=== PATIENT | male | born 1960 | race Asian ===

== ENCOUNTER 2018-08-07 16:37 | Inpatient (IN) | payer OTHER ==
[2018-08-07 17:12] LABS: ADD MAN DIFF? NO
[2018-08-07] MEDS: DILTIAZEM 25 MG INJ IV ×2 (17:12)
[2018-08-07] MEDS: ASPIRIN 81 MG TAB PO (17:12)
[2018-08-07 17:17] LABS: BASOPHIL # 0.1 10^3/ul (0.0-0.1); BASOPHILS % 0.7 % (0.0-2.0); EOSINOPHILS # 0.2 10^3/ul (0.0-0.5); EOSINOPHILS % 3.2 % (0.0-7.0); HEMATOCRIT 43.3 % (42.0-52.0); HEMOGLOBIN 14.1 g/dl (14.0-18.0); LYMPHOCYTES # 1.6 10^3/ul (0.8-2.9); LYMPHOCYTES % 21.3 % (15.0-51.0); MEAN CORPUSCULAR HEMOGLOBIN 30.4 pg (29.0-33.0); MEAN CORPUSCULAR HGB CONC 32.6 g/dl (32.0-37.0); MEAN CORPUSCULAR VOLUME 93.3 fl (82.0-101.0); MEAN PLATELET VOLUME 10.2 fl (7.4-10.4); MONOCYTE # 0.8 10^3/ul (0.3-0.9); MONOCYTES % 9.9 % (0.0-11.0); NEUTROPHIL # 4.9 10^3/ul (1.6-7.5); NEUTROPHILS % 64.4 % (39.0-77.0); PLATELET COUNT 232 10^3/UL (140-415); RED BLOOD COUNT 4.64 10^6/ul (4.70-6.10); RED CELL DISTRIBUTION WIDTH 13.5 % (11.5-14.5)
[2018-08-07 17:17] LABS: WHITE BLOOD COUNT 7.6 10^3/ul (4.8-10.8)
[2018-08-07] MEDS: MAGNESIUM SULFATE 2 GM/50 ML 50 ML IVPB (17:19)
[2018-08-07 17:34] LABS: ANION GAP 5 (5-13); BLOOD UREA NITROGEN 17 mg/dl (7-20); CALCIUM 8.9 mg/dl (8.4-10.2); CARBON DIOXIDE 28 mmol/L (21-31); CHLORIDE 104 mmol/L (97-110); CREATININE 0.77 mg/dl (0.61-1.24); Estimated GFR > 60 mL/min (>60); GLUCOSE 180 mg/dl (70-220); POTASSIUM 4.4 mmol/L (3.5-5.1); SODIUM 137 mmol/L (135-144)
[2018-08-07 17:36] LABS: INR 1.01; PROTIME 13.4 Sec (11.9-14.9)
[2018-08-07 17:37] LABS: PARTIAL THROMBOPLASTIN TIME 32.6 Sec (23.0-35.0)
[2018-08-07 17:46] LABS: B-TYPE NATRIURETIC PEPTIDE 2120 PG/ML (0-125); TROPONIN-I 0.013 ng/ml (0.000-0.120)
[2018-08-07] MEDS: DILTIAZEM-D5W 125MG/125ML DRIP 125 ML IV (18:30)
[2018-08-07] MEDS ORDERED: ONDANSETRON 4 MG INJ IV ×2 (18:30→19:00)
[2018-08-07] MEDS ORDERED: ACETAMINOPHEN 325 MG TAB PO (18:30)
[2018-08-07] MEDS ORDERED: GLUCOSE GEL 15 GRAM TUBE BUCCAL (19:30)
[2018-08-07] MEDS ORDERED: DEXTROSE 50% 50 ML SYRINGE IV ×2 (19:30)
[2018-08-07] MEDS ORDERED: GLUCOSE GEL 15 GRAM TUBE PO ×2 (19:30)
[2018-08-07] MEDS ORDERED: GLUCAGON 1 MG INJ IM (19:30)
[2018-08-07] MEDS: GUAIFENESIN/CODEINE 5ML CUP PO (19:42)
[2018-08-07] MEDS: INSULIN ASPART [NOVOLOG] 3 ML PEN SC (21:00)
[2018-08-07 23:22] LABS: CREATINE KINASE 142 IU/L (23-200)
[2018-08-07 23:35] LABS: CK INDEX 1.6; CK-MB 2.25 ng/ml (0.0-2.4)
[2018-08-08] MEDS: AMIODARONE 900 MG in DEXTROSE 5% 482 ML IV ×3 (01:16→23:15)
[2018-08-08] MEDS: ACCU-CHEK XX (02:00)
[2018-08-08 07:21] LABS: CK-MB 1.81 ng/ml (0.0-2.4); TROPONIN-I 0.018 ng/ml (0.000-0.120)
[2018-08-08 07:23] LABS: CK INDEX 1.8; CREATINE KINASE 102 IU/L (23-200)
[2018-08-08] MEDS: GUAIFENESIN/CODEINE 5ML CUP PO ×4 (08:12→22:14)
[2018-08-08] MEDS: INSULIN ASPART [NOVOLOG] 3 ML PEN SC ×4 (08:22→20:54)
[2018-08-08] MEDS: METOPROLOL 25 MG TAB PO (08:27)
[2018-08-08] MEDS: DIGOXIN 500 MCG INJ IV ×2 (13:50→18:20)
[2018-08-08] MEDS: metFORMIN 500 MG TAB PO (17:21)
[2018-08-08] MEDS: RIVAROXABAN 10 MG TABLET PO (17:21)
[2018-08-08] MEDS ORDERED: METOPROLOL 5 MG INJ IV (17:30)
[2018-08-08] MEDS: METOPROLOL (XL) 25 MG TAB PO (20:53)
[2018-08-09] MEDS: DIGOXIN 500 MCG INJ IV (00:18)
[2018-08-09] MEDS: ACCU-CHEK XX (02:00)
[2018-08-09 08:36] LABS: ADD MAN DIFF? NO
[2018-08-09 08:42] LABS: WHITE BLOOD COUNT 9.6 10^3/ul (4.8-10.8)
[2018-08-09 08:42] LABS: BASOPHILS % 0.4 % (0.0-2.0); EOSINOPHILS # 0.2 10^3/ul (0.0-0.5); EOSINOPHILS % 2.3 % (0.0-7.0); HEMOGLOBIN 13.1 g/dl (14.0-18.0); LYMPHOCYTES # 1.5 10^3/ul (0.8-2.9); LYMPHOCYTES % 15.2 % (15.0-51.0); MEAN CORPUSCULAR HEMOGLOBIN 30.8 pg (29.0-33.0); MEAN CORPUSCULAR HGB CONC 32.8 g/dl (32.0-37.0); MEAN CORPUSCULAR VOLUME 93.9 fl (82.0-101.0); MEAN PLATELET VOLUME 10.9 fl (7.4-10.4); MONOCYTE # 0.7 10^3/ul (0.3-0.9); MONOCYTES % 6.9 % (0.0-11.0); NEUTROPHIL # 7.2 10^3/ul (1.6-7.5); NEUTROPHILS % 74.8 % (39.0-77.0); PLATELET COUNT 190 10^3/UL (140-415); RED BLOOD COUNT 4.26 10^6/ul (4.70-6.10); RED CELL DISTRIBUTION WIDTH 13.4 % (11.5-14.5)
[2018-08-09 08:48] LABS: HEMOGLOBIN A1C 8.4 % (0-5.9)
[2018-08-09] MEDS: METOPROLOL (XL) 25 MG TAB PO ×2 (08:48→21:29)
[2018-08-09] MEDS: metFORMIN 500 MG TAB PO ×2 (08:48→17:16)
[2018-08-09] MEDS: INSULIN ASPART [NOVOLOG] 3 ML PEN SC ×4 (08:52→21:00)
[2018-08-09] MEDS: LISINOPRIL 5 MG TAB PO (09:04)
[2018-08-09 09:07] LABS: ANION GAP 6 (5-13); BLOOD UREA NITROGEN 15 mg/dl (7-20); CALCIUM 8.7 mg/dl (8.4-10.2); CARBON DIOXIDE 28 mmol/L (21-31); CHLORIDE 101 mmol/L (97-110); CREATININE 0.67 mg/dl (0.61-1.24); Estimated GFR > 60 mL/min (>60); GLUCOSE 166 mg/dl (70-220); POTASSIUM 4.2 mmol/L (3.5-5.1); SODIUM 135 mmol/L (135-144)
[2018-08-09] MEDS: GUAIFENESIN/CODEINE 5ML CUP PO ×3 (09:07→21:28)
[2018-08-09 09:10] LABS: CHOL/HDL RATIO 6.2 RATIO; HDL CHOLESTEROL 28 mg/dl (30-78); LDL CHOLESTEROL,CALCULATED 130 mg/dl; TRIGLYCERIDES 86 mg/dl (0-149)
[2018-08-09 09:10] LABS: CHOLESTEROL 175 mg/dl (100-200)
[2018-08-09] MEDS: DIGOXIN 0.125 MG TAB PO (13:19)
[2018-08-09] MEDS: RIVAROXABAN 10 MG TABLET PO (17:16)
[2018-08-09] MEDS: DOCUSATE SODIUM 100 MG CAP PO (17:53)
[2018-08-09] MEDS: FAMOTIDINE 20 MG TAB PO (17:53)
[2018-08-09] MEDS: INSULIN GLARGINE [LANTus] (100 UNITS/ML) SYG SC (21:35)
[2018-08-10] MEDS: ACCU-CHEK XX (02:00)
[2018-08-10 06:57] LABS: ADD MAN DIFF? NO
[2018-08-10 07:01] LABS: WHITE BLOOD COUNT 15.7 10^3/ul (4.8-10.8)
[2018-08-10 07:01] LABS: BASOPHILS % 0.3 % (0.0-2.0); EOSINOPHILS # 0.1 10^3/ul (0.0-0.5); EOSINOPHILS % 0.4 % (0.0-7.0); HEMATOCRIT 40.8 % (42.0-52.0); HEMOGLOBIN 13.5 g/dl (14.0-18.0); LYMPHOCYTES # 1.9 10^3/ul (0.8-2.9); LYMPHOCYTES % 12.4 % (15.0-51.0); MEAN CORPUSCULAR HEMOGLOBIN 30.9 pg (29.0-33.0); MEAN CORPUSCULAR HGB CONC 33.1 g/dl (32.0-37.0); MEAN CORPUSCULAR VOLUME 93.4 fl (82.0-101.0); MEAN PLATELET VOLUME 10.8 fl (7.4-10.4); MONOCYTE # 1.2 10^3/ul (0.3-0.9); MONOCYTES % 7.9 % (0.0-11.0); NEUTROPHIL # 12.3 10^3/ul (1.6-7.5); NEUTROPHILS % 78.5 % (39.0-77.0); PLATELET COUNT 202 10^3/UL (140-415); RED BLOOD COUNT 4.37 10^6/ul (4.70-6.10); RED CELL DISTRIBUTION WIDTH 13.2 % (11.5-14.5)
[2018-08-10 07:29] LABS: DIGOXIN 0.7 ng/ml (1.0-2.0)
[2018-08-10 07:36] LABS: ALANINE AMINOTRANSFERASE 72 IU/L (13-69); ALBUMIN 3.4 g/dl (3.3-4.9); ALBUMIN/GLOBULIN RATIO 0.94; ALKALINE PHOSPHATASE 93 IU/L (42-121); ANION GAP 7 (5-13); ASPARTATE AMINO TRANSFERASE 43 IU/L (15-46); BLOOD UREA NITROGEN 14 mg/dl (7-20); CALCIUM 8.8 mg/dl (8.4-10.2); CARBON DIOXIDE 33 mmol/L (21-31); CHLORIDE 96 mmol/L (97-110); CREATININE 0.73 mg/dl (0.61-1.24); Estimated GFR > 60 mL/min (>60); GLUCOSE 148 mg/dl (70-220); MAGNESIUM 1.5 mg/dl (1.7-2.5); POTASSIUM 4.1 mmol/L (3.5-5.1); SODIUM 136 mmol/L (135-144)
[2018-08-10 07:40] LABS: TROPONIN-I 0.019 ng/ml (0.000-0.120)
[2018-08-10] MEDS: INSULIN ASPART [NOVOLOG] 3 ML PEN SC ×4 (07:50→22:10)
[2018-08-10] MEDS: metFORMIN 500 MG TAB PO ×2 (08:01→17:32)
[2018-08-10] MEDS: FAMOTIDINE 20 MG TAB PO (08:02)
[2018-08-10] MEDS: LISINOPRIL 5 MG TAB PO (08:02)
[2018-08-10] MEDS: METOPROLOL (XL) 25 MG TAB PO ×2 (08:02→21:00)
[2018-08-10] MEDS: DIGOXIN 0.125 MG TAB PO (12:35)
[2018-08-10] MEDS: GUAIFENESIN/CODEINE 5ML CUP PO (12:35)
[2018-08-10] MEDS: MAGNESIUM SULFATE 3 GM in DEXTROSE 5% 100 ML IVPB (12:37)
[2018-08-10] MEDS ORDERED: MAGNESIUM OXIDE 400 MG TAB PO (13:00)
[2018-08-10] MEDS: RIVAROXABAN 10 MG TABLET PO (17:28)
[2018-08-10] MEDS: INSULIN GLARGINE [LANTus] (100 UNITS/ML) SYG SC (22:09)
[2018-08-10] MEDS: HYDROCODONE/HOMATROPINE 5ML CUP PO (22:15)
[2018-08-11] MEDS: METOPROLOL (XL) 25 MG TAB PO ×3 (00:47→21:00)
[2018-08-11] MEDS: ACCU-CHEK XX (02:00)
[2018-08-11 06:12] LABS: ADD MAN DIFF? NO
[2018-08-11 06:17] LABS: BASOPHIL # 0.1 10^3/ul (0.0-0.1); BASOPHILS % 0.4 % (0.0-2.0); EOSINOPHILS # 0.1 10^3/ul (0.0-0.5); EOSINOPHILS % 0.7 % (0.0-7.0); HEMATOCRIT 41.7 % (42.0-52.0); HEMOGLOBIN 13.7 g/dl (14.0-18.0); LYMPHOCYTES # 1.8 10^3/ul (0.8-2.9); LYMPHOCYTES % 12.8 % (15.0-51.0); MEAN CORPUSCULAR HEMOGLOBIN 30.9 pg (29.0-33.0); MEAN CORPUSCULAR HGB CONC 32.9 g/dl (32.0-37.0); MEAN CORPUSCULAR VOLUME 93.9 fl (82.0-101.0); MEAN PLATELET VOLUME 10.7 fl (7.4-10.4); MONOCYTE # 1.3 10^3/ul (0.3-0.9); MONOCYTES % 9.3 % (0.0-11.0); NEUTROPHIL # 10.4 10^3/ul (1.6-7.5); NEUTROPHILS % 76.3 % (39.0-77.0); PLATELET COUNT 182 10^3/UL (140-415); RED BLOOD COUNT 4.44 10^6/ul (4.70-6.10); RED CELL DISTRIBUTION WIDTH 12.9 % (11.5-14.5)
[2018-08-11 06:17] LABS: WHITE BLOOD COUNT 13.7 10^3/ul (4.8-10.8)
[2018-08-11 06:49] LABS: PROTIME 18.2 Sec (11.9-14.9); PT RATIO 1.4
[2018-08-11 07:04] LABS: ALANINE AMINOTRANSFERASE 55 IU/L (13-69); ALBUMIN 3.3 g/dl (3.3-4.9); ALBUMIN/GLOBULIN RATIO 0.89; ALKALINE PHOSPHATASE 101 IU/L (42-121); ANION GAP 7 (5-13); ASPARTATE AMINO TRANSFERASE 32 IU/L (15-46); BILIRUBIN,INDIRECT 1.6 mg/dl (0-1.1); BILIRUBIN,TOTAL 1.6 mg/dl (0.2-1.3); BLOOD UREA NITROGEN 14 mg/dl (7-20); CALCIUM 8.6 mg/dl (8.4-10.2); CARBON DIOXIDE 29 mmol/L (21-31); CHLORIDE 98 mmol/L (97-110); CREATININE 0.69 mg/dl (0.61-1.24); Estimated GFR > 60 mL/min (>60); GLUCOSE 168 mg/dl (70-220); MAGNESIUM 1.8 mg/dl (1.7-2.5); POTASSIUM 4.1 mmol/L (3.5-5.1); SODIUM 134 mmol/L (135-144)
[2018-08-11] MEDS: metFORMIN 500 MG TAB PO ×2 (07:55→17:35)
[2018-08-11] MEDS: INSULIN ASPART [NOVOLOG] 3 ML PEN SC ×4 (07:55→21:00)
[2018-08-11] MEDS: FAMOTIDINE 20 MG TAB PO (08:28)
[2018-08-11] MEDS: LISINOPRIL 5 MG TAB PO (08:28)
[2018-08-11] MEDS: REGADENOSON 0.4 MG/5 ML SYG (09:42)
[2018-08-11] MEDS: DIGOXIN 0.125 MG TAB PO (13:33)
[2018-08-11] MEDS: HYDROCODONE/HOMATROPINE 5ML CUP PO (13:41)
[2018-08-11] MEDS: RIVAROXABAN 10 MG TABLET PO (17:35)
[2018-08-11] MEDS: INSULIN GLARGINE [LANTus] (100 UNITS/ML) SYG SC (20:00)
[2018-08-11] MEDS: GUAIFENESIN/CODEINE 5ML CUP PO (20:07)
== END 2018-08-11 21:48 | disposition home or self-care (01) | DRG 308 ==
LOC: E/R 16:37 → TEL 18:27
DX: I48.2 Chronic atrial fibrillation (principal); I50.23 Acute on chronic systolic (congestive) heart failure; I11.0 Hypertensive heart disease with heart failure; I42.9 Cardiomyopathy, unspecified; E11.9 Type 2 diabetes mellitus without complications; J20.9 Acute bronchitis, unspecified; Z91.14 Patient's other noncompliance with medication regimen; Z79.01 Long term (current) use of anticoagulants; Z79.4 Long term (current) use of insulin; Z79.84 Long term (current) use of oral hypoglycemic drugs
CPT/HCPCS: 36415; 71045; 78452; 80048; 80053; 80061; 80162; 82550; 82553; 82962; 83036; 83735; 83880; 84443; 84484; 85025; 85610; 85730; 87400; 93005; 93017; 93306; 96374; 96375; 99285-25